=== PATIENT | male | born 1965 | race American Indian/Alaskan Native ===

== ENCOUNTER 2021-06-24 11:24 | Inpatient (IN) | payer OTHER ==
[~2021-06-24] VITALS: Ht 175.3 cm; Wt 63.0 kg
[~2021-06-24 11:24] MED LIST: KETOROLAC TROME10 MG PO; LISINOPRIL10 MG PO; NAPROXEN375 MG PO
--- NOTE | 2021-06-24 15:51 | NUR ---
PATIENT ADMITTED TO ROOM 127 VIA STRETCHER FROM ER AROUND 1500. PATIENT BEING ADMITTED FOR CHF. PT GIVEN 40 MG IV IN ER. PATIENT ON 2 L NC WITH SP02 OF 100%, AND WHEN TAKEN OFF OXYGEN SP02 IS 98%. ADMISSION ASSESSMENT COMPLETE. ECHO TO BE DONE. PT NOTES HISTORY OF PERICARDITIS IN 2012 AT THE [facility], AND REPORTS HE "HAS NEVER BEEN THE SAME EVER SINCE THAT ILLNESS." CHF EDUCATION PROVIDED. HR IN THE 80-90s, L BBB EVIDENT UPON ADMIT. PT DENIES ANY CHEST PAIN, AND STATES ONLY HIS SHORTNESS OF BREATH IS WHEN HE EXERTS HIMSELF BY WALKING OR TOO MUCH ACTIVITY. PT HAS TRADE EDEMA IN LOWER LEGS. PT VOIDING TO URINAL DILUTE YELLOW URINE. ECHO NOW IN ROOM. LAST BP 165/85.
--- NOTE | 2021-06-24 16:38 | NUR ---
WHEN PATIENT SLEEPING, SP02 CAN TRANSIENTLY DROP TO LOW 80% BEFORE COMING BACK UP. PATIENT IS RESTING IN ROOM AT THIS TIME. WILL PLACE OXYGEN ON PATIENT IF HE CONTINUES TO DROP LIKE THIS.
--- NOTE | 2021-06-24 17:37 | NUR ---
PATIENT PLACED BACK ON OXYGEN WHILE SLEEPING. PT NOTED TO HAVE EPISODES OF APNEA, EVEN WHEN THIS RN IN ROOM WITH PATIENT AND PATIENT WAS AWAKE JUST SECONDS BEFORE. PT NOW SITTING UP IN BED AND EATING DINNER. HR IN THE 90s. PT STILL DENIES HAVING ANY PAIN. 1500 DOSE OF LASIX TO BE DELAYED UNTIL LATER THIS EVENING. PO POTASSIUM GIVEN. CONTINUE TO MONITOR.
--- NOTE | 2021-06-24 19:30 | NUR ---
REPORT RECIEVED, CARE OF PATIENT ASSUMED AT THIS TIME. PT RESTING IN BED ON LEFT SIDE. CALL LIGHT AND PERSONAL BELONGINGS WITHIN REACH. PT ALERT AND ORIENTED. DENIES ANY NEEDS AT THIS TIME.
--- NOTE | 2021-06-24 20:04 | EKG ---
[facility] [address] [facility] [place], [place] [address] Signed Normal sinus rhythm Right atrial enlargement Nonspecific intraventricular block Anterolateral infarct , age undetermined Abnormal ECG No previous ECGs available Confirmed by SAIRA MOCTEZUMA MD ([id number]) on 06/24/2021 8:04:46 PM Electronically Signed By: SAIRA MOCTEZUMA MD 06/24/212003 PATIENT NAME: ETIENNESOLITARIO Electrocardiogram DATE OF : 61 PHYSICIAN: SAIRA MOCTEZUMA MD REPORT #: [id number] REPORT IS CONFIDENTIAL AND NOT TO BE RELEASED WITHOUT AUTHORIZATION
--- NOTE | 2021-06-24 21:03 | NUR ---
ASSESSMENT COMPLETED. PT DROWSY BUT ORIENTED X 4, VOIDED LARGE DILUTE AMOUNT OF URINE TO URINAL. IN THE 70S TO 80S AT REST. PT HAS EPISODES OF SPO2 DECREASING INTO THE 80S WHILE ASLEEP. PT ON 2 L NC; AT THIS TIME AT 98%. PT DENIES PAIN OR DISCOMFORT, JUST STATES "I WANNA SLEEP". CALL LIGHT WITHIN REACH. NO FURTHER ASSESSED NEEDS AT THIS TIME.
--- NOTE | 2021-06-24 23:07 | NUR ---
IN ROOM FOR ASSESSMENT. PT RESTING ON LEFT SIDE. HEART RATE IN THE 90S. SPO2 = 100% ON 2 L NC. PT VOIDED ANOTHER 1000 MLS. CRACKLES NOTED IN LEFT AIR LOYOLA, CLEAR ON THE RIGHT SIDE. PT DENIES PAIN OR DISCOMFORT AT THIS TIME. CALL LIGHT WITHIN REACH. WILL CONTINUE TO MONITOR.
--- NOTE | 2021-06-24 23:21 | NUR ---
RESPONDED TO CODE BLUE IN ROOM 107. PT UNRESPONSIVE WHILE ON BSC. PUT BACK IN BED. PT SPO2 =90%, COLOR PALE AND PT BEGAN RESPONDING WITH [address] ON 6 L NC. HEART RATE UP IN THE 120-140 WITH AN IRREGULAR RHYTHM. PT ALERT AND RESPONSIVE. PT TRANSPORTED TO CCU AT THIS TIME BY THIS RN, FLOAT RN, AND RESPIRATORY THERAPY. 1 L LACTATED RINGERS BOLUS INFUSING. RN TO LAB FOR UNIT OF BLOOD. DR MOCTEZUMA NOTIFIED BY MED SURG POULTRY HUSBANDRY TEACHER. RASCH AT BEDSIDE AT 2330. VERBAL ORDER TO RAPID INFUSE 2 UNITS OF BLOOD. PT BECOMING MORE ALERT AND ORIENTED. HEART RATE IN THE 90S. BLOOD PRESSURE WNL. PT CALLED AT THIS TIME. SPO2 = 100%. THIS RN, TRANSMITTER ENGINEER IN CHARGE AND DR MOCTEZUMA REMAIN AT BEDSIDE.
--- NOTE | 2021-06-25 00:10 | NUR ---
PATIENT IS RESTING IN BED WITH EYES CLOSED, RR 21.
--- NOTE | 2021-06-25 00:16 | NUR ---
FIRST UNIT OF BLOOD FINISHED INFUSING. AND SPIRITUAL CARE AT BEDSIDE WITH PT. PT ALERT AND ORIENTED AT THIS TIME. PT STATES HE FEELS "BETTER". SPO2 = 100% ON 4 L NC. PT HEART RATE 80-90 IN SINUS RHYTHM WITH OCCASIONAL PVCS.
--- NOTE | 2021-06-25 00:28 | NUR ---
PT TRANSPORTED BY YARY ADEN AND YARY MEHTA FROM SURGERY GIVEN REPORT AND PT TRANSPORTED AT THIS TIME SILVANO STRETCHER ON POST TRONIC MACHINE OPERATOR TO SURGERY.
--- NOTE | 2021-06-25 02:00 | NUR ---
PT UP TO VOID. HEART RATE INCREASED INTO THE HIGH 90S WITH EXERTION. BACK IN BED, CALL LIGHT WITHIN REACH, WILL CONTINUE TO MONITOR.
--- NOTE | 2021-06-25 03:53 | NUR ---
ASSESSMENT COMPLETED. PT LAYING ON LEFT SIDE. ALERT AND ORIENTED WHEN WOKEN UP, BUT REMAINS DROWSY AND FALLS ASLEEP DURING ASSESSMENT. FINE CRACKLES NOTED IN LEFT LOWER LUNG BASE, RIGHT LOWER LOBE IS DIMINISHED WHILE UPPER AIRWAYS REMAIN CLEAR. HEAR RATE IN THE 80S AT REST. SPO2 = 100% ON RROM AIR. CALL LIGHT AND PERSONAL BELONGINGS WITHIN REACH. NO ASSESSED NEEDS AT THIS TIME.
--- NOTE | 2021-06-25 07:26 | NUR ---
REPORT RECEIVED FROM NIGHTSHIFT RN, WILL CONTINUE PLAN OF CARE.
--- NOTE | 2021-06-25 07:30 | NUR ---
THIS RN IN TO CHECK ON PT. PT LAYING IN BED RESTING AND AWAKE, PT ALERT AND ORIENTED X3. PT'S BREAKFAST ORDER TAKEN AT THIS TIME. PT REPORTS NO FURTHER NEEDS AT THIS TIME AND STATED HE WOULD RETURN BACK TO SLEEP. WILL CONTINUE PLAN OF CARE. CALL LIGHT IN REACH, BED IN LOWEST POSITION.
--- NOTE | 2021-06-25 07:45 | NUR ---
DR. MOCTEZUMA IN TO ASSESS PT AND UPDATE ON POC. PT REPORTS NO FURTHER NEEDS AT THIS TIME, ICE WATER PROVIDED TO PT, PT NOW RESTING IN BED AGAIN AT THIS TIME, CALL LIGHT IN REACH, BED IN LOWEST POSITION, WILL CONTINUE PLAN OF CARE.
--- NOTE | 2021-06-25 08:00 | NUR ---
PATIENT RESTING IN BED, WOKE TO VOICE. VITALS CHARTED. FRESH ICE WATER PROVIDED.
--- NOTE | 2021-06-25 08:49 | NUR ---
THIS RN IN TO ASSESS PT AND ADMINISTER SCHEDULED MEDICATIONS. PT LAYING IN BED SLEEPING BUT AWOKE EASILY. PT STILL SLIGHTLY DROWSY BUT RESPONDS APPROPRIATELY. PT DENIES HAVING ANY PAIN AT THIS TIME WHEN ASKED. SCHEDULED MEDICATIONS ADMINISTERED AT THIS TIME (SEE OCT) EXCEPT FOR MIRALAX. PT REFUSED MIRALAX WHEN ASKED AND INFORMED OF ITS PURPOSE. PT ASSESSED AFTERWARDS, BOWEL TONES ACTIVE, LUNGS CLEAR IN UPPER LOBES WITH FINE CRACKLES PRESENT IN THE BASES BILATERALLY. PT DENIES SOB, IS ON 2L O2 NC, SPO2 98-100% AT THIS TIME. PT REPORTS NO FURTHER NEEDS WHEN ASKED, BREAKFAST BROUGHT TO PT. PT NOW SITTING UP IN BED EATING BREAKFAST, CALL LIGHT IN REACH, BED IN LOWEST POSITION, WILL CONTINUE PLAN OF CARE.
--- NOTE | 2021-06-25 09:05 | NUR ---
THIS RN IN INITIALLY TO CHECK ON PT PT WAS NOTED TO DESATURATE TO 85% ON THE MONITOR. PT SITTING UP IN BED AWAKE AND ALERT EATING BREAKFAST, PT NOTED TO BE SOB, NASAL CANNULA OFF THE PT. PT STATES HE HAD JUST USED THE URINAL AND BEGAN TO FEEL DIZZY. URINAL NOTED TO HAVE YELLOW URINE AT THE BEDSIDE. PT SPO2 NOW AT 90-92% BUT WAS PLACED BACK ON 2L O2 NC, SPO2 NOW 97%. PT DENIES FEELING LIGHTHEADED AT THIS TIME. PT FINISHED BREAKFAST, TRAY/TABLE CLEARED. PT NOW LAYING BACK IN BED AND REPORTS NO FURTHER NEEDS WHEN ASKED. CALL LIGHT IN REACH, BED IN LOWEST POSITION, WILL CONTINUE PLAN OF CARE.
--- NOTE | 2021-06-25 10:00 | NUR ---
THIS RN IN TO CHECK ON PT, PT LAYING IN BED SLEEPING BUT AWOKE EASILY. PT REPORTS NO NEEDS, DENIES HAVING ANY PAIN, AND DENIES SOB. PT NOTED TO BE ON 2L O2 NC, SPO2 100%. PT PROVIDED WITH ICE WATER AT THIS TIME. PT REPORTS NO FURTHER NEEDS AND IS RESTING IN BED. CALL LIGHT IN REACH.
--- NOTE | 2021-06-25 10:37 | NUR ---
CALL LIGHT ANSWERED, PATIENT FOUND IN BED, HOLDING BOTH THIGHS C/O "CRAMPING UP" PATIENT STATES HE DOES GET THESE CRAMPS/SARKIS HORSES AT HOME AND EATS A FEW BITES OF A BANANA TO HELP. RN IN ROOM WITH HOT PACK, DIETARY CALLED FOR BANANA. FRESH ICE WATER FROVIDED AND URINAL EMPTIED.
--- NOTE | 2021-06-25 10:42 | NUR ---
RESPONDED TO PT CALL LIGHT, PT LAYING IN BED AND STATED HE WAS HAVING A CRAMP ON HIS LEFT THIGH/LEG. LEFT LEG ELEVATED UNDER A PILLOW, PT PROVIDED WITH A WARM PACK AND WARM BLANKET WELL AND PRN TYLENOL ADMINISTERED AT THIS TIME FOR THE PAIN. PT STATES HE GETS LEG CRAMPS OCCASIONNALY AND STATES HE OFTEN "EATS A BANNANA" WHEN HE HAS THEM. BANNANA ORDERED PER HIS REQUEST AT THIS TIME. PT REPORTS NO FURTHER NEEDS WHEN ASKED AND IS NOW RESTING IN BED. CALL LIGHT IN REACH, BED IN LOWEST POSITION, WILL CONTINUE PLAN OF CARE.
--- NOTE | 2021-06-25 10:51 | NUR ---
Certified Heart Failure Nurse Notes: Diagnosis: Acute Heart Failure Information Coordinator- will need established with PCP: recorded as [facility] Echocardiogram completed this visit- EF 15% Dry weight not found Admit Wt.: 154lb Admit BNP 0 Chart reviewed. Attempted to interview patient. Ineffective due to patient's somnolence. He was able to states he has a working phone that I can call for post DC follow up and that he can read but needs reading glasses. Recommendations prior to discharge: driver license reviewing officer of heart failure packet including Zones form Document ambulation oxygen saturations prior to discharge Discharge weight less than admit weight. Discharge BNP less than admit (as per [facility] Heart Failure DC Bundle) Ensure patient has follow up visit scheduled with either PCP or convention worker within 7 days of discharge. Follow up plan: Follow up with patient by phone for heart failure education needs/scales/diet/ medications. Support patient in plan to cease substance abuse.
--- NOTE | 2021-06-25 11:30 | NUR ---
THIS RN IN TO CHECK ON PT TO TRANSFER A PHONE CALL TO HIM. PT LAYING IN BED AWAKE AND ALERT AT THIS TIME AND HAD JUST FINISHED HANGING UP HIS CELL PHONE. PT STATES HE WOULD LIKE TO TALK TO THE PERSON ON THE PHONE ONCE HE WAS NOTIFIED OF WHO IT WAS. PT NOW SPEAKING ON THE PHONE, PT REPORTS NO FURTHER NEEDS AT THIS TIME WHEN ASKED, WILL CONTINUE PLAN OF CARE. CALL LIGHT IN REACH, BED IN LOWEST POSITION.
--- NOTE | 2021-06-25 12:10 | NUR ---
THIS RN IN TO ASSESS PT. PT LAYING IN BED AWAKE AT THIS TIME AND IS ALERT AND ORIENTED. PT ON 2L O2 NC, SPO2 100%. 2L O2 TAKEN OFF AT THIS TIME, PT WAS ABLE TO MAINTAIN HIS SPO2 AT 97% ON ROOM AIR, PT DENIES SHORTNESS OF BREATH. PT ASSESSED AT THIS TIME. RADIAL AND PEDAL PULSES STRONG, ACTIVE BOWEL TONES, LUNGS CLEAR IN UPPER LOBES AND FINE CRACKLES PRESENT IN LOWER LOBES BILATERALLY. AFTER ASSESSMENT PT REPORTED HAVING ANOTHER CRAMP ON HIS LEFT LEG. PT OFFERED TO BE SAT ONTO THE BEDSIDE RECLINER TO SEE IF A POSITIONAL CHANGE WOULD HELP. PT ABLE TO STAND UP AND GET ON TO THE BEDISDE RECLINER. PT LEGS ELEVATED, WARM PACK PLACED UNDER LEG AND WARM BLANKET PLACED OVER. PT STATES THIS HELPED SLIGHTLY. CRAMPING SUBSIDED SHORTLY AFTER. PT REPORTS NO FURTHER NEEDS AT THIS TIME AND IS NOW RESTING ON THE BEDSIDE RECLINER. CALL LIGHT IN REACH, WILL CONTINUE PLAN OF CARE.
--- NOTE | 2021-06-25 13:00 | NUR ---
DR. MOCTEZUMA UPDATED ON PT AT THIS TIME AND INFORMED ON PT'S LEG CRAMPS, WILL CONTINUE PLAN OF CARE.
--- NOTE | 2021-06-25 13:00 | NUR ---
PT IS ALERT, ORIENTED AND I AM FAMILIAR WITH THIS PT. PT SEEMS GENUINELY CONCERNED, ALMOST FRIGHTENED. HAD GOOD TIME OF DEBRIEFING, ENCOURAGEMENT AND HAD PRAYER WITH PT. HE REQUESTED I CONTACT HIS DAD, WHO DOES NOT KNOW HE IS HERE. DAD IS TORRES MARTINEZ, SO I TEXTED HIM. WILL CONTINUE TO FOLLOW
--- NOTE | 2021-06-25 13:35 | NUR ---
THIS RN IN TO ADMINISTER SCHEDULED MEDICATION. PT SITTING UP IN BED AWAKE AND ALERT EATING HIS LUNCH. PT ON ROOM AIR, SPO2 97%, PT DENIES PAIN AT THIS TIME WHEN ASKED. PT FINISHED EATING HIS LUNCH, SCHEDULED MEDICATION ADMINISTERED (SEE MAR). PT NOW RESTING IN BED AND REPORTS NO FURTHER NEEDS AT THIS TIME. WILL CONTINUE PLAN OF CARE, CALL LIGHT IN REACH, BED IN LOWEST POSITION.
--- NOTE | 2021-06-25 14:29 | NUR ---
PATIENT AWAKE AND SITTING ON SIDE OF BED. VITALS CHARTED. URINAL EMEPTIED. FRESH ICE WATER PROVIDED. CALL LIGHT IN REACH
--- NOTE | 2021-06-25 14:40 | NUR ---
THIS RN IN TO CHECK ON PT, PT SITTING AT THE BEDSIDE AT THIS TIME AWAKE AND ALERT ON ROOM AIR, SPO2 96%. PT REPORTS NO NEEDS AT THIS TIME WHEN ASKED. CALL LIGHT IN REACH, BED IN LOWEST POSITION, WILL CONTINUE PLAN OF CARE.
--- NOTE | 2021-06-25 15:20 | NUR ---
THIS RN IN TO TAKE VITALS AND ASSESS PT. PT SITTING UP IN BED AND HAD JUST FINISHED STANDING AT THE BEDSIDE TO USE THE URINAL. VITALS TAKEN AND PT ASSESSED. LUNGS NOTED TO BE MORE CLEAR IN LOWER BASES AT THIS TIME WITH FEWER/SPORADIC FINE CRACKLES, UPPER LOBES CLEAR BILATERALLY. PT STILL ON ROOM AIR, SPO2 94%. PT DENIES HAVING ANY PAIN AT THIS TIME AND DENIES SHORTNESS OF BREATH. DINNER ORDER TAKEN FOR PT AT THIS TIME AND PT NOW LAYING IN BED ON HIS LEFT SIDE RESTING. PT REPORTS NO FURTHER NEEDS WHEN ASKED, WILL CONTINUE PLAN OF CARE. CALL LIGHT IN REACH, BED IN LOWEST POSITION.
--- NOTE | 2021-06-25 16:25 | NUR ---
THIS RN IN TO CHECK ON PT. PT SITTING AT THE SIDE OF THE BED TAKING OFF HIS BP CUFF. PT ALERT AND ORIENTED. PT STATED HE NEEDED TO GO TO THE BATHROOM TO HAVE A BM. PT ASSISTED WITH WIRE MANAGEMENT, PT ABLE TO WALK INTO THE BATHROOM BUT DID NOT HAVE A BM. PT BEGAN TO HAVE A CRAMP ON THE WAY BACK AND SAT UP AT THE SIDE GROANING FROM HIS LEG CRAMP. WARM PACK PLACED ON HIS LEG AND PRN TYLENOL ADMINISTERED FOR PAIN. PT'S CRAMP SUBSIDED AFTER RESTING ON HIS SIDE FOR A FEW MINUTES. PT NOW BACK IN BED LAYING ON HIS SIDE, ICE PACK NOW IN PLACE. PT REPORTS NO FURTHER NEEDS AT THIS TIME AND IS NOW RESTING IN BED. CALL LIGHT IN REACH, BED IN LOWEST POSITION, WILL CONTINUE PLAN OF CARE.
--- NOTE | 2021-06-25 16:50 | NUR ---
PATIENT ASLEEP. DOES NOT ROUSE TO NAME X3. RR EVEN UNLABORED. SPOKE WITH GUNNAR PRINGLE. PATIENT STATED HE DOES NOT WANT TO SPEAK TO TREATMENT COUNSELING. WILL TRY AGAIN TOMORROW.
--- NOTE | 2021-06-25 17:15 | NUR ---
THIS RN IN TO ADMINISTER SCHEDULED MEDICATION. PT LAYING IN BED AWAKE AND ALERT AT THIS TIME. DINNER ORDER ALSO BROUGHT FOR PT AT THIS TIME. SCHEDULED MEDICATION ADMINISTERED AT THIS TIME (SEE OCT). PT NOW EATING DINNER AT THIS TIME. PT REPORTS NO FURTHER NEEDS WHEN ASKED AND DENIES HAVING ANY PAIN AT THIS TIME. PT ON ROOM AIR, SPO2 95% AND DENIES SHORTNESS OF BREATH. PT STATES HE HAS NOT HAD ANY LEG CRAMPS SINCE HIS PREVIOUS ONE. CALL LIGHT IN REACH, BED IN LOWEST POSITION, WILL CONTINUE PLAN OF CARE.
--- NOTE | 2021-06-25 17:40 | NUR ---
THIS RN IN TO CHECK ON PT. PT LAYING IN BED AWAKE AND ALERT AT THIS TIME RESTING. PT FINISHED EATING 100% OF HIS DINNER. HEART FAILURE PACKET/INFORMATION GONE OVER WITHT HE PT AT THIS TIME. PT HAD NO QUESTIONS REGARDING INFORMATION PROVIDED AT THIS TIME WHEN ASKED. PACKET AT THE BEDSIDE NOW, PT RESTING IN BED AGAIN AT THIS TIME AND REPORTS NO FURTHER NEEDS WHEN ASKED. CALL LIGHT IN REACH.
--- NOTE | 2021-06-25 18:30 | NUR ---
THIS RN IN TO CHECK ON PT. PT LAYING IN BED SLEEPING ON ROOM AIR. SPO2 92%. PT RESPIRATIONS NOTED, PT IN NO APPARENT DISTRESS AT THIS TIME AND WAS LEFT UNDISTURBED, CALL LIGHT IN REACH, BED IN LOWEST POSITION, WILL CONTINUE PLAN OF CARE.
--- NOTE | 2021-06-25 19:15 | NUR ---
THIS RN IN TO CHECK ON PT. PT LAYING IN BED AWAKE AND ALERT AND STATED THAT HE HAD JUST FINISHED VOIDING INTO THE URINAL. PT REPORTS FEELING SHORT OF BREATH AFTER GETTING TO THE SIDE OF THE BED TO VOID. SPO2 NOTED TO BE 93%. PT STATED HE WAS BEGINNING TO HAVE A LEG CRAMP, PRN BENADRYL ADMINISTERED AT THIS TIME. PT NOW RESTING IN BED AND REPORTS NO FURTHER NEEDS AT THIS TIME. CALL LIGHT IN REACH, BED IN LOWEST POSITION, WILL CONTINUE PLAN OF CARE.
--- NOTE | 2021-06-25 20:42 | NUR ---
REPORT CALLED TO YARY FAIRBANKS. VITAL SIGNS STABLE.
--- NOTE | 2021-06-25 21:10 | NUR ---
pt ARRIVED FROM CCU TO MEDR FLOOR AT THIS TIME, MUNICIPAL CLERK RADHA IN ROOM AND ORIENTED pt TO ROOM. CALL LIGHT IN REACH.
--- NOTE | 2021-06-26 06:14 | NUR ---
[id number] SEE PAPERCHARTING
--- NOTE | 2021-06-26 09:00 | NUR ---
REPORT RECEIVED FROM NIGHT RN AND PT. CARE RESUMED. PT. IS DROWSY BUT EASILY AWAKENS AND ORIENTED TO ALL. CRACKLES PRESENT IN RLL. PT. IS BREATHING LOUDLY AFTER TURNING IN BED AND 02 SAT IS 100%. HE DENIES PAIN AT THIS TIME. IV SITE WNL AND FLUSHES. DISCUSSED POC AND MEDICATION. LEFT RESTING IN BED WITH CALL LIGHT IN REACH.
--- NOTE | 2021-06-26 09:10 | NUR ---
PT TALKATIVE AND ENERGETIC. PT BOUNCING AROUND IN BED. VISITOR IN ROOM. UPDATED WHITE BOARD, GAVE PT WARM CLOTH FOR FACE. TIDIED UP ROOM, OPENED BLINDS. PT REFUSED CHAIR AND ORAL CARE. YARY IZAGUIRRE NOTIFIED. CALL LIGHT IN REACH, NO FURTHER NEEDS AT THIS TIME
--- NOTE | 2021-06-26 10:02 | NUR ---
PT. REPORTS HEADACHE. ADMIN. TYLENOL. PT. DENIES FURTHER NEEDS. LEFT RESTING WITH CALL LIGHT IN REACH.
--- NOTE | 2021-06-26 10:17 | NUR ---
PT AGAIN REFUSED THE CHAIR. PT SAYS THEY HAVE A HEADACHE AND JUST WANT TO SLEEP. CALL LIGHT WITHIN REACH, NO FURTHER NEEDS AT THIS TIME.
--- NOTE | 2021-06-26 10:19 | NUR ---
MED REC COMPLETED BY PHARMACY
--- NOTE | 2021-06-26 10:21 | NUR ---
BROUGHT WARM BLANKETS FOR PT. CALL LIGHT WITHIN REACH, NO FURTHER NEEDS AT THIS TIME.
--- NOTE | 2021-06-26 11:26 | NUR ---
ROUNDING ON PT. HE IS RESTING IN BED AND DENIES NEEDS AT THIS TIME.
--- NOTE | 2021-06-26 13:00 | NUR ---
Pt lives with son and his girlfriend. Pt denies needs. Does not want to speak with JOYCE for meth use. Wants to return to [facility]. Attempted to call and recieved a call back from Dr. Imani Bryant MA. She states she needs to speak with the Dr. as pt has not been seen since 2017. Pt confirmed this. Annette will call back with appt.
--- NOTE | 2021-06-26 13:54 | NUR ---
PT. AMBULATED 3X AROUND THE UNIT AND DENIES SOB. HR 94 AND 02 SAT. IS 100% AFTER. PT. LEFT RESTING IN THE CHAIR WITH CALL LIGHT IN REACH.
--- NOTE | 2021-06-26 14:02 | NUR ---
PT RESTING IN BED, SAID HE IS JUST REALLY TIRED TODAY. MENTIONED THAT HIS DAD CAME BY TODAY-SEEMED PLEASED. GAVE ENCOURAGEMENT AND BLESSING. WILL FOLLOW
--- NOTE | 2021-06-26 14:22 | NUR ---
PT RELAXING IN CHAIR. PT JUST RETURNED FROM WALKING THE HALLS. ROOM TIDIED. CALL LIGHT WITHIN REACH, NO FURTHER NEEDS AT THIS TIME.
--- NOTE | 2021-06-26 15:08 | NUR ---
PREPPED BATHROOM FOR SHOWER. PREPPED PT'S IV SITE AND CHANGED LINENS. PT INDEPENDENT IN SHOWER.
--- NOTE | 2021-06-26 15:28 | NUR ---
BATHROOM CLEANED, ROOM TIDIED. PLASTIC TAKEN OFF OF IV. IV SITE LOOKS A LITTLE DAMP, RN DMITRIY NOTIFIED. CALL LIGHT WITHIN REACH, NO FURTHER NEEDS AT THIS TIME
--- NOTE | 2021-06-26 16:30 | NUR ---
PT'S SISTER CALLED AND PT. VERBALLY STATED IT WAS OKAY TO GIVE HER UPDATES. SISTER GIVEN AN UPDATE.
--- NOTE | 2021-06-26 17:22 | NUR ---
PT JUST STARTING ON DINNER. PT UNHAPPY ABOUT THIER FLUID RESTRICTION. EARLIER, PT ORDERED AND WAS DELIVERED A 24 OUNCE NIKUNJ FRAP. PT WAS GIVEN A SMALL AMOUNT IN ACCORDANCE TO FLUID RESTRICTION, AND EDUCATED BY THIS EMBOSSING CLERK AND YARY IZAGUIRRE. THE REST WAS LABELED WITH PT'S STICKER AND PUT IN THE FRIDGE. CALL LIGHT WITHIN REACH, NO FURTHER NEEDS AT THIS TIME.
--- NOTE | 2021-06-26 19:44 | NUR ---
oN ROOM AIR, CLEAR LUINGS, NO C/O SOB, INDEPENDENT IN ROOM. ABD DISTENDED, HAD A BM TODAY, VOIDING QS CLEAR YELLOW URINE. SL LAC PATENT, TOLERATING FLUIDS RESTRICTION WELL. NO C/O SOB, PAIN OR CP. COOP WITH ASSESSMENT
--- NOTE | 2021-06-26 22:46 | NUR ---
talked to pts son Uziel, updated on pts condition, home diet, decreas salty foods, Mrs Dash as option for condiments, daily weights and when to inform MD, sob, chest pain and preventative measures, 911. stated understanding.
--- NOTE | 2021-06-27 03:04 | NUR ---
RESATING, AWAKES EASILY, VOIDING QS, TOLERATING FLUID RESTRICTION, NO C/O PAIN, HAS SLEPT THIS SHIFT. CALL LIGHT AT BEDSIDE
--- NOTE | 2021-06-27 05:51 | NUR ---
PT HAS SLEPT, NO C/O SOB OR CP, TURNS AND REPOSITIONS SELF IN BED. ON ROOM AIR.SL PATENT LAC, TOLERATING FLUIDS RESTRICTION WELL, COMPLIANT. VOIDING QS. NO EMESIS. AMBULATORY IN ROOM, TOLERATED WELL, FLAT AFFECT. COOP WITH ASSESSMENTS. DAILY WEIGHT 63KG. PLEASANT, LOOKING FORWARD TO DC TODAY.
--- NOTE | 2021-06-27 07:38 | NUR ---
PT SLEEPING STILL. UPDATED WHITE BOARD. WILL CHECK BACK IN WITH THEM SOON. CALL LIGHT WITHIN REACH.
--- NOTE | 2021-06-27 08:00 | NUR ---
REPORT RECEIVED FROM NIGHT RN AND PT. CARE RESUMED. HE IS DROWSY BUT EASILY AWAKENS TO VOICE AND ORIENTED TO ALL. HE DENIES PAIN AT THIS TIME. IV SITE WNL AND FLUSHES. MEDS ADMINISTERED. LUNGS CLEAR THROUGHOUT. DISCUSSED POC AND MEDS. LEFT RESTING WITH CALL LIGHT IN REACH.
--- NOTE | 2021-06-27 08:57 | NUR ---
PT REFUSED AM CARE. PT SLEEPING AGAIN. CALL LIGHT WITHIN REACH, NO FURTHER NEEDS AT THIS TIME.
--- NOTE | 2021-06-27 09:10 | NUR ---
PATIENT IN BED ON HIS SIDE. ASKED IF HE HAD ANY CONCERNS FOR DISCHARGE. PATIENT SAID "NO" AND KEPT EYES CLOSED AND FACE COVERED MOSTLY BY BLANKET. DID NOT PARTICIPATE PAST THAT.
--- NOTE | 2021-06-27 10:43 | NUR ---
PT RESTING IN BED, EASILY AWAKENS. PT STATED HE IS TIRED AND THIRSTY. REMINDED PT HE MAY BE ON FLUID RESTRICTION, BUT THAT I WOULD MENTION TO HIS RN DMITRIY. SHE SAID SHE WOULD CHECK AND SEE IF HE CAN HAVE MORE. GAVE ENCOURAGEMENT, AND WILL CONTINUE TO FOLLOW
--- NOTE | 2021-06-27 11:05 | NUR ---
AUREA PRINGLE FROM [facility] CALLED. SHE STATES THEY WILL SEE PATIENT FOR F/U. HE HAS NOT BEEN SEEN THERE SINCE 2016. STATES BECKY WILKINSON WILL SEE HIM ON WednesdayJun AT 3PM. UPDATED CHARGE NURSE SO CAN BE ADDED TO DISCHARGE INSTRUCTIONS.
--- NOTE | 2021-06-27 13:20 | NUR ---
PT WAS SLEEPING WHEN I CAME IN. PREPPED SHOWER AND PT'S IV SITE FOR SHOWER. NO FURTHER NEEDS AT THIS TIME. LINENS CHANGED.
[2021-06-27] MEDS ORDERED: METOPROLOL SUCC25 MG PO (13:59)
[2021-06-27] MEDS ORDERED: TORSEMIDE10 MG PO (13:59)
--- NOTE | 2021-06-27 14:44 | NUR ---
PT CURRENTLY GETTING IV TAKEN OUT BY YARY MORAN. BATHROOM TIDIED, ROOM PUT IN ORDER. CALL LIGHT WITHIN REACH, NO FURTHER NEEDS AT THIS MOMENT.
--- NOTE | 2021-06-27 15:36 | NUR ---
ALL DISCHARGE INSTRUCTIONS REVIEWED WITH PATIENT AND QUESTIONS ANSWERED. VITALS STABLE AND HE DENIES PAIN. LEFT VIA WHEELCHAIR WITH ALL BELONGINGS WITH WET PROCESS OPERATOR.
--- NOTE | 2021-06-30 14:09 | NUR ---
Heart Failure Follow Up Call Attempted to F/u with Fortino Todd 61. One number [phone] is a nonworking number, 2nd phone [phone] no answer and no voicemail set up. I have called Dr Johnson nurse and left message to contact me or have patient contact this service for heart failure education follow up.
== END 2021-06-27 15:40 | disposition home or self-care (01) | DRG 917 ==
LOC: ED 11:24 → CCU 11:26 → MS 06-25 20:00
PROVIDERS: ADMIT Internal Medicine; ATTEND Internal Medicine
DX: T43.621A Poisoning by amphetamines, accidental (unintentional), initial encounter (principal); I50.23 Acute on chronic systolic (congestive) heart failure; Z79.899 Other long term (current) drug therapy
CPT/HCPCS: 71045; 71260; 80048; 80053; 81001; 83735; 83880; 84484; 85025; 85379; 93005; 93010; 93306; 96372; 96376; 99285-25; C9803; G0378; J1650; J1940; Q9967; U0003

== ENCOUNTER 2022-11-19 23:50 | Emergency (ER) | payer OTHER ==
[~2022-11-19] VITALS: Ht 175.3 cm; Wt 70.3 kg
[~2022-11-19 23:50] MED LIST changes: +METOPROLOL SUCC25 MG PO; +TORSEMIDE10 MG PO
--- NOTE | 2022-11-20 21:31 | EKG ---
[facility] [address] [facility] [place] [address] Signed Sinus tachycardia with premature atrial complexes Biatrial enlargement Right superior axis deviation Nonspecific intraventricular block Cannot rule out Septal infarct (cited on or before 24-JUN-2021) Abnormal ECG When compared with ECG of 24-JUN-2021 11:42, premature atrial complexes are now present Questionable change in QRS axis QT has shortened Confirmed by SANNA LUNA MD ([id number]) on 11/20/2022 9:30:56 PM Electronically Signed By: SANNA LUNA MD 11/20/222130 PATIENT NAME: SOLITARIO CLIFTON Electrocardiogram DATE OF : 61 PHYSICIAN: SANNA LUNA MD REPORT #: [id number] REPORT IS CONFIDENTIAL AND NOT TO BE RELEASED WITHOUT AUTHORIZATION
== END 2022-11-20 03:56 | disposition other institution, planned readmission (95) ==
LOC: ED 23:50
DX: A41.9 Sepsis, unspecified organism (principal); R65.21 Severe sepsis with septic shock; N17.9 Acute kidney failure, unspecified; I50.9 Heart failure, unspecified; I95.9 Hypotension, unspecified; J18.9 Pneumonia, unspecified organism; I11.0 Hypertensive heart disease with heart failure; Z79.899 Other long term (current) drug therapy; Z20.822 Contact with and (suspected) exposure to COVID-19
CPT/HCPCS: 36415; 36600; 51702; 71045; 80053; 82803; 83605; 83880; 84484; 85025; 87502; 93005; 93010; 99285-25; A9270; C9803; J1940; J2543; J7030; J7040; U0003

== ENCOUNTER 2024-11-05 12:04 | Emergency (ER) | payer OTHER ==
[~2024-11-05] VITALS: Ht 175.3 cm; Wt 74.5 kg
[2024-11-05 12:32] LABS: BASOPHILS 0.8 % (0-2); EOSINOPHILS 3.9 % (0-6); HEMOGLOBIN 13.9 g/dL (12.0-18.0); LYMPHOCYTES 20.3 % (24-44); MCH 28.9 (27-36); MCHC 33.9 g/dl (30-36); MCV 85.4 fl (81-99); MONOCYTES 9.1 % (0-12); NEUTROPHILS 65.9 % (39-80); PLATELET COUNT 218 K/uL (140-440); RDW 17.1 (10.5-15.0)
[2024-11-05 12:49] LABS: ALBUMIN 3.2 g/dL (3.4-5.0); ALBUMIN/GLOBULIN RATIO 0.97 (1.1-2.4); ANION GAP 8.3 (7-21); BILIRUBIN, TOTAL 0.4 mg/dL (0.2-1.0); BUN/CREATININE RATIO 19.8 (6.0-28.6); CALCIUM 8.8 mg/dL (8.5-10.1); CREATININE, SERUM 2.02 mg/dL (0.70-1.30); MAGNESIUM 2.2 mg/dL (1.8-2.4); POTASSIUM 4.3 mmol/L (3.5-5.1); PROTEIN, TOTAL 6.5 g/dL (6.4-8.2)
[2024-11-05 14:01] VITALS: BP 141/81
--- NOTE | 2024-11-06 17:38 | EKG ---
[facility] [address] [facility] [place] [address] Signed Sinus rhythm with marked sinus arrhythmia Right atrial enlargement Right superior axis deviation Nonspecific intraventricular block Minimal voltage criteria for LVH, may be normal variant ( Odell product ) Cannot rule out Septal infarct (cited on or before 24-JUN-2021) Abnormal ECG When compared with ECG of 20-NOV-2022 00:01, premature atrial complexes are no longer present Questionable change in QRS axis QT has lengthened Confirmed by Isauro Saunders DO ([id number]) on 11/06/2024 5:38:04 PM Electronically Signed By: ISAURO SAUNDERS DO 11/06/24 1738 PATIENT NAME: SOLITARIO CLIFTON Electrocardiogram DATE OF : 61 PHYSICIAN: ISAURO SAUNDERS DO REPORT #: [id number] REPORT IS CONFIDENTIAL AND NOT TO BE RELEASED WITHOUT AUTHORIZATION
== END 2024-11-05 14:01 | disposition home or self-care (01) ==
LOC: ED 12:04
PROVIDERS: Emergency Medicine
DX: I11.0 Hypertensive heart disease with heart failure; I50.9 Heart failure, unspecified; Z79.899 Other long term (current) drug therapy
CPT/HCPCS: 36415; 71045; 80053; 83735; 84484; 85025; 93005; 93010; 99284-25

== ENCOUNTER 2025-04-14 11:14 | Emergency (ER) | payer OTHER ==
[~2025-04-14] VITALS: Ht 175.3 cm; Wt 72.4 kg
[2025-04-14 11:46] LABS: BASOPHILS 0.7 % (0.2-1.2); EOSINOPHILS 1.9 % (0.8-7.0); LYMPHOCYTES 22.1 % (21.8-53.1); MCH 26.2 PG (25.7-32.2); MCHC 31.5 g/dL (32.3-36.5); MCV 83.2 fL (79.0-92.2); MONOCYTES 7.8 % (5.3-12.2); NEUTROPHILS 67.0 % (34.0-67.9); RBC 5.12 M/uL (4.63-6.08)
[2025-04-14] MEDS ORDERED: FUROSEMIDE 40 MG/4 ML VIAL IV ONE (12:00)
[2025-04-14] MEDS ORDERED: NITROGLYCERIN PACKET TOP ONE (12:00)
[2025-04-14 12:10] LABS: ALT (SGPT) 49.0 U/L (14-59); AST (SGOT) 32.0 U/L (15-37); GLOMERULAR FILTRATION RATE,EST 50.0 mL/min (>60); PROTEIN, TOTAL 7.2 g/dL (6.4-8.2); UREA NITROGEN 36.0 mg/dL (7-18)
[2025-04-14 12:13] LABS: INFLUENZA B NAA NEGATIVE (NEGATIVE); RESPIRATORY SYNCYTIAL VIR NAA NEGATIVE (NEGATIVE)
[2025-04-14] MEDS ORDERED: ALBUTEROL/IPRATROPIUM 3 ML NEB INH ONE (13:15)
[2025-04-14] MEDS ORDERED: DEXAMETHASONE SOD PHOS 10 MG/ML VIAL IV ONE (13:15)
[2025-04-14] MEDS ORDERED: PAXLOVID 150-11 EAC2 PO (14:50)
[2025-04-14 15:38] VITALS: BP 170/97
--- NOTE | 2025-04-16 13:52 | EKG ---
[facility] [address] [place] [address] Signed Sinus rhythm with sinus arrhythmia with premature ventricular complexes or fusion complexes Left atrial enlargement Right superior axis deviation Left ventricular hypertrophy with QRS widening ( Odell product ) Abnormal ECG When compared with ECG of 05-NOV-2024 12:09, fusion complexes are now present premature ventricular complexes are now present Questionable change in QRS axis Confirmed by Kai James MD () on 04/16/2025 1:51:44 PM Electronically Signed By: KAI JAMES MD 04/16/25 1352 PATIENT NAME: SOLITARIO CLIFTON Electrocardiogram DATE OF : 61 PHYSICIAN: KAI JAMES MD REPORT #: [id number] REPORT IS CONFIDENTIAL AND NOT TO BE RELEASED WITHOUT AUTHORIZATION
== END 2025-04-14 15:45 | disposition left against medical advice (07) ==
LOC: ED 11:14
PROVIDERS: Emergency Medicine
DX: U07.1 COVID-19 (principal); I11.0 Hypertensive heart disease with heart failure; I50.9 Heart failure, unspecified; Z79.899 Other long term (current) drug therapy; Z53.29 Procedure and treatment not carried out because of patient's decision for other reasons
CPT/HCPCS: 36415; 71045; 80053; 82803; 83880; 84484; 85025; 87502; 93005; 93010; 94640; 96374; 96375; 99285-25; J1100; J1938; U0002